=== PATIENT | male | born 1965 | race Caucasian/White ===

== ENCOUNTER 2021-04-17 10:29 | Inpatient (IN) | payer OTHER ==
[~2021-04-17] VITALS: Ht 185.4 cm; Wt 103.0 kg
[~2021-04-17 10:29] MED LIST: AMLODIPINE BESY10 MG PO; ASPIRIN325 M1 PO; CARVEDILOL 25MG25 MG PO; CLARITIN10 MG PO; DIGOX250 MCG PO; GABAPENTIN300 MG PO; GLUCOPHAGE1000 MG PO; NAPROXEN500 MG PO; NASONEX NAS120 PUFFS; NITROQUIK SL0.4 MG SL; OMEGA-3 ACID ETH1 GM PO; QUINAPRIL HCL20 MG PO; TRAMADOL HCL50 MG PO; VASCEPA1 GM PO; VENTOLIN HFA18 GM INH
[2021-04-17 10:50] LABS: BASOPHIL 0.7 % (0-2); EOSINOPHIL 7.7 % (0-5); HCT 45.8 % (42.0-52.0); HGB 15.6 g/dl (13.2-18.0); MCH 29.7 pg (25.0-31.0); MCHC 34.1 g/dL (32.0-36.0); MCV 87.1 fL (78.0-100.0); MPV 9.3 fL (6.0-9.5); NEUTROPHIL 61.4 % (41-80); NRBC 0; PLT 220 K/uL (150-400); RBC 5.26 M/uL (4.70-6.00); RDW 12.7 % (11.5-14.0); WBC 9.5 K/uL (4.0-10.5)
[2021-04-17 11:16] LABS: ALBUMIN 3.4 g/dL (3.4-5.0); BILIRUBIN - TOTAL 0.3 mg/dL (0.2-1.0); BUN/CREAT RATIO (CALC) 21.6 RATIO; CREATININE 0.74 mg/dL (0.67-1.17); GLOBULIN (CALCULATION) 3.3 g/dL; POTASSIUM 4.6 mmol/L (3.5-5.1); TOTAL PROTEIN 6.7 g/dL (6.4-8.2)
[2021-04-17] MEDS ORDERED: NEURONTIN100 MG PO (19:42)
[2021-04-17] MEDS ORDERED: ZINC50 M1 PO (19:42)
[2021-04-17] MEDS ORDERED: OXYCODONE-ACET1 EAC1 PO (19:44)
--- NOTE | 2021-04-17 23:46 | NUR ---
AT 2315 PATINET WAS COMPLAINING OF PAIN 6/10, 1 NITRO GIVEN, VITALS CHARTED. AT 2323 PAITIENT WAS STILL COMPLAINING OF PAIN IN LEFT JAW AND CHEST OF 5/10, ALSO COMPLAINING OF FEELING FLUSHED AND HOT, VITALS CHARTED, ANOTHER NITRO GIVEN. LABS DRAWN AND EKG DONE PER ORDERS. AT 2330 PATIENT WAS COMPLAINING OF PAIN OF 4/10 AND A HEADACHE. 1 PERCOCET GIVEN.
[2021-04-17 23:58] LABS: MAGNESIUM 1.7 mg/dL (1.8-2.4)
[2021-04-18 05:59] LABS: BASOPHIL 0.6 % (0-2); EOSINOPHIL 4.6 % (0-5); HGB 15.8 g/dl (13.2-18.0); LYMPHOCYTE 28.3 % (15-48); MCH 29.4 pg (25.0-31.0); MCHC 34.3 g/dL (32.0-36.0); MCV 85.7 fL (78.0-100.0); MONOCYTE 5.8 % (0-12); MPV 9.4 fL (6.0-9.5); NEUTROPHIL 60.4 % (41-80); NRBC 0; PLT 216 K/uL (150-400); RBC 5.37 M/uL (4.70-6.00); RDW 12.6 % (11.5-14.0); WBC 12.5 K/uL (4.0-10.5)
[2021-04-18 06:49] LABS: BUN/CREAT RATIO (CALC) 15.8 RATIO; CREATININE 0.76 mg/dL (0.67-1.17); MAGNESIUM 2.1 mg/dL (1.8-2.4); POTASSIUM 4.3 mmol/L (3.5-5.1)
== END 2021-04-18 13:32 | disposition other institution (70) | DRG 281 ==
LOC: FER 10:29 → FTCU 16:01
PROVIDERS: Emergency Medicine; ADMIT Internal Medicine
DX: I21.4 Non-ST elevation (NSTEMI) myocardial infarction (principal); J98.11 Atelectasis; E78.5 Hyperlipidemia, unspecified; I10 Essential (primary) hypertension; J44.9 Chronic obstructive pulmonary disease, unspecified; F17.200 Nicotine dependence, unspecified, uncomplicated; E11.40 Type 2 diabetes mellitus with diabetic neuropathy, unspecified; G89.29 Other chronic pain; E11.65 Type 2 diabetes mellitus with hyperglycemia; I25.10 Atherosclerotic heart disease of native coronary artery without angina pectoris; M51.36 Other intervertebral disc degeneration, lumbar region; Z20.822 Contact with and (suspected) exposure to COVID-19; Z82.49 Family history of ischemic heart disease and other diseases of the circulatory system; Z79.84 Long term (current) use of oral hypoglycemic drugs; Z79.899 Other long term (current) drug therapy; Z95.5 Presence of coronary angioplasty implant and graft; Z83.3 Family history of diabetes mellitus; Z82.3 Family history of stroke; Z80.8 Family history of malignant neoplasm of other organs or systems
CPT/HCPCS: 36415; 71045; 80048; 80053; 82553; 83036; 83735; 84484; 85025; 85730; 93005; J1644; J3475; J7030; U0002

== ENCOUNTER 2021-05-05 17:03 | Emergency (ER) | payer OTHER ==
[~2021-05-05 17:03] MED LIST changes: +NEURONTIN100 MG PO; +OXYCODONE-ACET1 EAC1 PO; +ZINC50 M1 PO
[2021-05-05 19:19] LABS: BASOPHIL 0.2 % (0-2); EOSINOPHIL 3.5 % (0-5); HCT 46.9 % (42.0-52.0); HGB 15.8 g/dl (13.2-18.0); LYMPHOCYTE 21.2 % (15-48); MCH 28.8 pg (25.0-31.0); MCHC 33.7 g/dL (32.0-36.0); MCV 85.6 fL (78.0-100.0); MONOCYTE 5.1 % (0-12); MPV 8.9 fL (6.0-9.5); NRBC 0; PLT 515 K/uL (150-400); RBC 5.48 M/uL (4.70-6.00); RDW 12.4 % (11.5-14.0); WBC 13.7 K/uL (4.0-10.5)
[2021-05-05 19:38] LABS: ALBUMIN 3.8 g/dL (3.4-5.0); BILIRUBIN - TOTAL 0.4 mg/dL (0.2-1.0); BUN/CREAT RATIO (CALC) 23.5 RATIO; CREATININE 0.98 mg/dL (0.67-1.17); GLOBULIN (CALCULATION) 3.8 g/dL; TOTAL PROTEIN 7.6 g/dL (6.4-8.2)
[2021-05-05 20:00] LABS: POTASSIUM 4.7 mmol/L (3.5-5.1)
[2021-05-05 22:55] LABS: BILIRUBIN NEGATIVE (NEGATIVE); BLOOD NEGATIVE Ery/uL (NEGATIVE); CLARITY CLEAR (CLEAR); COLOR YELLOW (YELLOW); GLUCOSE (U) 2+ mg/dL (NORMAL); LEUKOCYTES NEGATIVE Leu/uL (NEGATIVE); NITRITE NEGATIVE (NEGATIVE); PROTEIN NEGATIVE (NEGATIVE); UROBILINOGEN 0.2 mg/dL (0.2-1.0)
[2021-05-06 12:56] LABS: BASOPHIL 0.3 % (0-2); EOSINOPHIL 5.6 % (0-5); HCT 39.7 % (42.0-52.0); HGB 13.2 g/dl (13.2-18.0); LYMPHOCYTE 18.4 % (15-48); MCH 28.5 pg (25.0-31.0); MCHC 33.2 g/dL (32.0-36.0); MCV 85.7 fL (78.0-100.0); MONOCYTE 5.3 % (0-12); MPV 8.9 fL (6.0-9.5); NEUTROPHIL 70.2 % (41-80); NRBC 0; PLT 403 K/uL (150-400); RBC 4.63 M/uL (4.70-6.00); RDW 12.5 % (11.5-14.0); WBC 9.1 K/uL (4.0-10.5)
[2021-05-06 13:48] LABS: ALBUMIN 3.3 g/dL (3.4-5.0); BILIRUBIN - TOTAL 0.5 mg/dL (0.2-1.0); BUN/CREAT RATIO (CALC) 17.5 RATIO; CREATININE 1.03 mg/dL (0.67-1.17); GLOBULIN (CALCULATION) 3.8 g/dL; POTASSIUM 4.4 mmol/L (3.5-5.1); TOTAL PROTEIN 7.1 g/dL (6.4-8.2)
[2021-05-06] MEDS ORDERED: METRONIDAZOLE500 MG PO (13:55)
[2021-05-06] MEDS ORDERED: VIBRAMYCIN100 MG PO (13:55)
[2021-05-06] MEDS ORDERED: ONDANSETRON ODT4 MG PO (13:55)
== END 2021-05-06 14:32 | disposition home or self-care (01) ==
LOC: FER 17:03
PROVIDERS: Emergency Medicine; Nurse Practitioner Family
DX: K80.01 Calculus of gallbladder with acute cholecystitis with obstruction (principal); I25.2 Old myocardial infarction; J44.9 Chronic obstructive pulmonary disease, unspecified; I10 Essential (primary) hypertension; E11.40 Type 2 diabetes mellitus with diabetic neuropathy, unspecified; Z20.822 Contact with and (suspected) exposure to COVID-19; Z95.1 Presence of aortocoronary bypass graft; Z88.8 Allergy status to other drugs, medicaments and biological substances; Z87.891 Personal history of nicotine dependence; Z79.84 Long term (current) use of oral hypoglycemic drugs
CPT/HCPCS: 36415; 71045; 80053; 81003; 82270; 84484; 85025; 87045; 87046; 87205; 87449; 93005; J1170; J2270; J2405; J2543; J7120; Q9967; U0002